=== PATIENT | female | born 1945 | race Caucasian/White ===

== ENCOUNTER 2017-10-06 06:42 | Day surgery (SDC) | END 2017-10-06 10:46 | disposition home or self-care (01) ==

== ENCOUNTER 2019-01-20 09:07 | Day surgery (SDC) | payer MEDICARE, OTHER ==
[2019-01-20] VITALS (16 sets, daily range): BP systolic 136–162; BP diastolic 64–78; PULSE 80–90; RESP 11–20; Ht 152.4 cm; Wt 51.2 kg
[~2019-01-20] VITALS: Ht 152.4 cm; Wt 51.2 kg
[~2019-01-20 09:07] MED LIST: ALEN70TA5 PO; ATOR20TA65 ORAL; DOCU-210 ORAL; FER325 ORAL; GLYB5TAB3 PO; LISI-471 PO; METF-849 PO; METF100010 ORAL; OMEP20CA16 ORAL; OMEP40CA6 PO; RANI300T ORAL; SIMV20TA2 PO; SITA100T11 ORAL
[2019-01-20] MEDS ORDERED: SOD CHLORIDE 0.9% 1,000 ML IV SCH (11:00)
[2019-01-20] MEDS ORDERED: FENTAnyl 50 MCG/ML VIAL ONE (12:45)
[2019-01-20] MEDS ORDERED: NEOSTIGMINE 3 MG/3 ML SYRINGE ONE (12:45)
[2019-01-20] MEDS ORDERED: GLYCOPYRROLATE 0.4 MG INJ ONE (12:45)
[2019-01-20] MEDS ORDERED: CEFAZOLIN 1 GM INJ ONE (12:45)
[2019-01-20] MEDS ORDERED: MIDAZOLAM 1 MG/ML 2 ML INJ ONE (12:45)
[2019-01-20] MEDS ORDERED: ONDANSETRON 4 MG INJ ONE (12:45)
[2019-01-20] MEDS ORDERED: ROCURONIUM 50 MG INJ ONE (12:45)
[2019-01-20] MEDS ORDERED: PROPOFOL 20 ML ONE (12:45)
[2019-01-20] MEDS ORDERED: DEXAMETHASONE 4 MG/ML 5 ML INJ ONE (12:46)
[2019-01-20] MEDS ORDERED: ROPIVACAINE 0.5 % 30 ML VIAL ONE (12:46)
--- NOTE | 2019-01-20 12:54 | HPN ---
Date/Time of Note Date/Time of Note DATE: 01/20/19 TIME: 12:54 Interval H&P Admission Note Pt. seen H&P reviewed: No system changes ELEAZAR CUMMINS DPM Jan 20, 2019 12:54
[2019-01-20] MEDS ORDERED: POLYMYXIN/BACITRACIN 1L IRRIG ONE (13:11)
--- NOTE | 2019-01-20 13:28 | PREAC ---
Date/Time of Note Date/Time of Note DATE: 01/20/19 TIME: 13:26 Anesthesia Eval and Record Evaluation Time Pre-Procedure Interview DATE: 01/20/19 TIME: 13:26 Age 73 Sex female NPO: 8 hrs Preoperative diagnosis RIGHT 5TH METATARSAL FRACTURE Planned procedure ORIF RIGHT FOOT 5TH METATARSAL FX Past Medical History Past Medical History: Includes Cardio: HTN, Dyslipidemia Endo: Diabetes GI: GERD Surgery & Anesthesia Issues No known issue Meds Anticoagulation: No Beta Miles within 24 hr: No Reason Beta Miles not given: Pt. not on B-Miles Reported Medications Alendronate Sodium* (Fosamax*) 70 Mg Tablet, 70 MG PO Q7D for SUNDAYS, #4 TAB 01/20/19 Docusate Sodium (Col-Rite) 100 Mg Capsule, 1 CAP ORAL BID PRN for CONSTIPATION 01/20/19 Ferrous Sulfate* (Ferrous Sulfate*) 325 Mg Tabec, 1 TAB ORAL BID 01/20/19 Atorvastatin Calcium (Atorvastatin Calcium) 20 Mg Tablet, 1 TAB ORAL QHS 01/20/19 Sitagliptin* (Januvia*) 100 Mg Tablet, 1 TAB ORAL DAILY 01/20/19 Ranitidine Hcl* (Ranitidine Hcl*) 300 Mg Tablet, 1 TAB ORAL QHS 01/20/19 Omeprazole* (Omeprazole*) 20 Mg Capsule., 1 CAP ORAL DAILY 01/20/19 Metformin Hcl* (Metformin Hcl*) 1,000 Mg Tablet, 1 TAB ORAL BID 01/20/19 Lisinopril* (Lisinopril*) 20 Mg Tablet, 20 MG PO BID 08/22/11 Discontinued Reported Medications Omeprazole* (Omeprazole*) 40 Mg Capsule.dr, 40 MG PO DAILY, #30 CAP 10/06/17 Simvastatin (Simvastatin) 20 Mg Tablet, 20 MG PO DAILY 08/22/11 Glyburide* (Glyburide*) 5 Mg Tablet, 5 MG PO TID 08/22/11 Metformin* (Glucophage*) 500 Mg Tab, 500 MG PO TID 08/22/11 Current Medications Sodium Chloride 1,000 ml @ 30 mls/hr Q24H IV ; Start 01/20/19 at 11:00 Meds reviewed: Yes Allergies Coded Allergies: No Known Allergy (Unverified , 01/20/19) Allergies Reviewed: Yes Labs/Studies Labs Reviewed: Reviewed by anesthesiologist test: N/A Studies: ECG (NL), CXR (NAPD) Pre-procedure Exam Last vitals Vital Signs Date Temp Pulse Resp B/P (MAP) Pulse Ox O2 O2 Flow FiO2 Time Delivery Rate 01/20/19 97.7 87 16 152/68 99 10:32 (96) Airway: Adequate mouth opening, Adequate thyromental dist Mallampati: Mallampati II Teeth: Normal Lung: Normal Heart: Normal ASA Physical Status ASA physical status: 2 Emergency: None Planned Anesthetic General/MAC: ETT Nerve block: Sciatic (right) Planned Pain Management Parenteral pain med Pre-operative Attestations Prior to commencing anesthesia and surgery, the patient was re-evaluated, there was verification of: *The patient's identity *The results of appropriate recent lab work and preoperative vital signs *The above evaluation not changing prior to induction *Anesthetic plan, risk benefits, alternative and complications discussed with patient/family; questions answered; patient/family understands, accepts and wishes to proceed. Saroj Ventura M.D. Jan 20, 2019 13:28
[2019-01-20] MEDS ORDERED: IPRATROPIUM (NEB) 0.5 MG/2.5 ML AMP HHN PRN (13:30)
[2019-01-20] MEDS ORDERED: OXYCODONE/ACETAMINOPHEN (5/325) TAB PO PRN ×2 (13:30)
[2019-01-20] MEDS ORDERED: LABETALOL HCL 20MG INJ IV PRN (13:30)
[2019-01-20] MEDS ORDERED: ALBUTEROL 0.083% (NEB) 2.5 MG/3 ML AMP HHN PRN (13:30)
[2019-01-20] MEDS ORDERED: TRIMETHOBENZAMIDE 100 MG/ML VIAL IM PRN (13:30)
[2019-01-20] MEDS ORDERED: DIPHENHYDRAMINE 50 MG INJ IV PRN (13:30)
[2019-01-20] MEDS ORDERED: ONDANSETRON 4 MG INJ IV PRN (13:30)
[2019-01-20] MEDS ORDERED: HYDROmorphONE 1 MG/5 ML IV SYRINGE IV PRN ×3 (13:30)
[2019-01-20] MEDS ORDERED: MIDAZOLAM 1 MG/ML 2 ML INJ IV PRN (13:30)
[2019-01-20] MEDS ORDERED: MEPERIDINE 25 MG INJ IV PRN (13:30)
[2019-01-20] MEDS ORDERED: hydrALAzine 20 MG INJ IV PRN (13:30)
[2019-01-20] MEDS ORDERED: FENTAnyl 50 MCG/ML VIAL IV PRN ×3 (13:30)
[2019-01-20] MEDS ORDERED: EPHEDrine 25 MG/5 ML SYG IV PRN (13:30)
--- NOTE | 2019-01-20 14:38 | OPPN ---
Date/Time of Note Date/Time of Note DATE: 01/20/19 TIME: 14:37 Operative Report Preoperative Diagnosis Fracture with dislocation of right fifth metatarsal bone Right foot pain Postoperative Diagnosis Fracture with dislocation of right fifth metatarsal bone Right foot pain Operation/Procedure Performed Open reduction with internal fixation of right fifth metatarsal fracture with dislocation Postop splint application Intra operative use and interpretation of fluoroscopy Surgeon see signature line business office assistant None Anesthesia: general Estimated blood loss: 0 - 10 ml's Transfusion Required none Specimen None Grafts/Implants none Complications none ELEAZAR CUMMINS DPM Jan 20, 2019 14:38
--- NOTE | 2019-01-20 14:38 | OPR ---
Date/Time of Note Date/Time of Note DATE: 01/20/19 TIME: 14:38 Operative Report Procedure Date: Jan 20, 2019 Preoperative Diagnosis Fracture with dislocation of right fifth metatarsal bone Right foot pain Postoperative Diagnosis Fracture with dislocation of right fifth metatarsal bone Right foot pain Operation/Procedure Performed Open reduction with internal fixation of right fifth metatarsal fracture with dislocation Postop splint application Intra operative use and interpretation of fluoroscopy Surgeon see signature line Hides And Skins Colorer None Anesthesia Type: general Estimated Blood Loss: minimal Transfusion none Specimen None Grafts/Implants none Complications none Pt Condition Post Procedure: stable Disposition: PACU Indications This is a pleasant 73-year-old female patient who has been suffering with fracture of the right fifth metatarsal with dislocation over 3 weeks. Because of the dislocation and instability of the fracture, recommendation is for open reduction with internal fixation. Risks and complications of this type of surgery was discussed with patient in great detail. Risks and complications discussed include, but are not limited to, postoperative infection, postoperative pain, chronic pain and disability, hardware failure, malunion, nonunion, delayed union, failure of surgery to correct the problem, need for additional surgical procedures, toenail changes, onychomycosis, deep venous thrombosis, gait disturbance, problems with shoegear, limitation of activities, limb loss and loss of life. Patient understands the discussion and agrees to the procedure. An informed consent was obtained, signed and placed in the chart. No guarantee or warrantee was given or implied as to the outcome of the procedure either in verbal or written form. Procedure Description Patient was seen in the preoperative area. Proposed surgery was discussed in great detail. Opportunity was given to patient asked questions and all questions were answered. Patient acknowledges understanding of the discussion and agrees to the procedure. Patient was then taken to the operating room and was placed on the operative table. A timeout was called by the circulating nurse and everyone agreed with the timeout. Patient was placed under general anesthesia by the anesthesiologist. The anesthesiologist also gave patient a popliteal block. A pneumatic ankle tourniquet was applied to the right ankle. The right foot was scrubbed, prepped and draped in usual aseptic manner. An Esmarch bandage was utilized to exsanguinate the right foot and the tourniquet was inflated to 250 mmHg pressure. Attention was directed to the right fifth metatarsal bone. A 4 semilunar incision was made over the dorsal lateral aspect of the fifth metatarsal bone using a #10 blade. Bleeders were cauterized as necessary. Vital neurovascular structures were identified and protected as necessary. Dissection was continued the periosteal layer. The fracture was identified and was found to be displaced. Care was used to freshen up the fracture site and the fracture fragments were then reduced and held in reduction. A 4 hole plate was inserted using lag technique. The fracture reduction was checked using intraoperative fluoroscopy and there is near anatomical reduction. The wound was then flushed with copious muscle sterile normal saline. Subcutaneous layer was closed using 4-0 Vicryl suture and the skin was closed using 5-0 Monocryl in simple suture technique. Sterile dressing was applied. Tourniquet was deflated at this time and prompt hyperemic response was noted to digits of the right foot. The patient tolerated procedure anesthesia well. She was transferred to recovery with vital signs stable and vascular status intact to the right foot. Patient will be discharged home after postoperative monitoring. Patient may do partial weightbearing with postop shoe on the right foot with crutches. Patient will be seen next week in my office for postoperative follow-up. ELEAZAR CUMMINS DPM Jan 20, 2019 14:38
--- NOTE | 2019-01-20 14:38 | PAC ---
Date/Time of Note Date/Time of Note DATE: 01/20/19 TIME: 14:38 Post-Anesthesia Notes Post-Anesthesia Note Last documented vital signs Vital Signs Date Temp Pulse Resp B/P (MAP) Pulse Ox O2 O2 Flow FiO2 Time Delivery Rate 01/20/19 97.7 87 16 152/68 99 10:32 (96) Activity: WNL Respiratory function: WNL Cardiovascular function: WNL Mental status: Baseline Pain reasonably controlled: Yes Hydration appropriate: Yes Nausea/Vomiting absent: Yes Saroj Ventura M.D. Jan 20, 2019 14:38
== END 2019-01-20 17:14 | disposition home or self-care (01) ==
LOC: SDS 09:07
PROVIDERS: ATTEND Podiatrist Foot & Ankle Surgery
DX: S92.351A Displaced fracture of fifth metatarsal bone, right foot, initial encounter for closed fracture (principal); I10 Essential (primary) hypertension; E11.9 Type 2 diabetes mellitus without complications; K21.9 Gastro-esophageal reflux disease without esophagitis; X58.XXXA Exposure to other specified factors, initial encounter
CPT/HCPCS: 28485; 73620; 73630; 82962; J0690; J1100; J1170; J2250; J2405; J2710; J2795; J3010